=== PATIENT | male | born 2000 | race Caucasian/White ===

== ENCOUNTER 2022-10-17 09:12 | Day surgery (SDC) | payer OTHER ==
[2022-10-13 12:19] VITALS: BMI 21.4
[~2022-10-17 09:12] MED LIST: BUPIVACAINE HCL/EPINEPHRINE/PF 30 ML VIAL IJ ONE; VANCOMYCIN 1,000 MG VIAL (RESTRICTED TO ID ONLY) ONE
[2022-10-17] MEDS ORDERED: PROPOFOL 20 ML ONE ×2 (09:29→10:52)
[2022-10-17] MEDS ORDERED: MIDAZOLAM HCL 2 MG/2 ML SINGLE DOSE VIAL ONE (09:29)
[2022-10-17] MEDS ORDERED: oxyCODONE HCL 5 MG TABLET PO PRN (09:45)
[2022-10-17] MEDS ORDERED: ACETAMINOPHEN 325 MG TABLET (FP) PO PRN (09:45)
[2022-10-17] MEDS ORDERED: ONDANSETRON 4 MG/2 ML VIAL IVPUSH PRN (09:45)
[2022-10-17] MEDS ORDERED: LACTATED RINGERS SOLUTION 1,000 ML IV SCH (09:45)
[2022-10-17] MEDS ORDERED: BUPIVACAINE LIPOSOME/PF (EXPAREL) 266 MG/20 ML VIAL ONE (10:03)
[2022-10-17] MEDS ORDERED: BUPIVACAINE HCL/PF 0.5% (5MG/ML) 10 ML VIAL ONE (10:03)
[2022-10-17] MEDS ORDERED: ACETAMINOPHEN INJECTION 100 ML IVPB ONE (10:04)
[2022-10-17] MEDS ORDERED: KETAMINE HCL 200 MG/20 ML VIAL ONE (10:35)
[2022-10-17] MEDS ORDERED: TRANEXAMIC ACID 1000 MG/10 ML VIAL ONE (11:14)
[2022-10-17 12:53] VITALS: PULSE 56; RESP 18; TEMP 98.3
[2022-10-17 13:46] VITALS: BP 125/74
== END 2022-10-17 12:50 | disposition home or self-care (01) ==
LOC: FASU 09:12
PROVIDERS: ATTEND Orthopaedic Surgery
PROC: 0SBD4ZX Excision of Left Knee Joint, Percutaneous Endoscopic Approach, Diagnostic (ICD-10-PCS; 2022-10-17)
PROC: 0SCD4ZZ Extirpation of Matter from Left Knee Joint, Percutaneous Endoscopic Approach (ICD-10-PCS; principal; 2022-10-17 11:03)
DX: M22.02 Recurrent dislocation of patella, left knee (principal); M24.19 Other articular cartilage disorders, other specified site
CPT/HCPCS: 88304-TC; 88311-TC; 94760

== ENCOUNTER 2022-11-23 08:09 | Day surgery (SDC) | payer OTHER ==
[2022-11-10 14:04] VITALS: BMI 21.4
[2022-11-23] MEDS ORDERED: BUPIVACAINE LIPOSOME/PF (EXPAREL) 266 MG/20 ML VIAL ONE (09:29)
[2022-11-23] MEDS ORDERED: SODIUM CHLORIDE 0.9% P/F 10 ML VIAL IJ ONE (09:29)
[2022-11-23] MEDS ORDERED: MIDAZOLAM HCL 2 MG/2 ML SINGLE DOSE VIAL ONE (09:29)
[2022-11-23] MEDS ORDERED: BUPIVACAINE HCL/PF 0.5% (5MG/ML) 10 ML VIAL ONE (09:29)
[2022-11-23] MEDS ORDERED: KETOROLAC TROMETHAMINE 30 MG/1 ML VIAL ONE (09:40)
[2022-11-23] MEDS ORDERED: ONDANSETRON 4 MG/2 ML VIAL ONE (09:40)
[2022-11-23] MEDS ORDERED: DEXAMETHASONE SOD PHOSPHATE 4 MG/1 ML VIAL ONE (09:40)
[2022-11-23] MEDS ORDERED: ceFAZolin SODIUM 1 GM VIAL ONE (09:40)
[2022-11-23] MEDS ORDERED: PROPOFOL 60 ML ONE (09:41)
[2022-11-23] MEDS ORDERED: SUCCINYLCHOLINE CHLORIDE 200 MG/10 ML SYRINGE ONE (09:41)
[2022-11-23] MEDS ORDERED: TRANEXAMIC ACID 1000 MG/10 ML VIAL ONE ×3 (10:20→11:19)
[2022-11-23] MEDS ORDERED: PROPOFOL 20 ML ONE (13:16)
[2022-11-23] MEDS ORDERED: ACETAMINOPHEN INJECTION 100 ML IVPB ONE (14:14)
[2022-11-23] MEDS ORDERED: ACETAMINOPHEN 1000 MG/100 ML BAG IVPB ONE (14:15)
[2022-11-23] MEDS ORDERED: FENTANYL CITRATE/PF 50 MCG/ML VIAL ONE (14:21)
[2022-11-23] MEDS ORDERED: ONDANSETRON 4 MG/2 ML VIAL IVPUSH PRN (15:00)
[2022-11-23] MEDS ORDERED: oxyCODONE HCL 5 MG TABLET PO PRN ×2 (15:00)
[2022-11-23] MEDS ORDERED: PROMETHAZINE HCL 25 MG/1 ML VIAL IVPB PRN (15:00)
[2022-11-23] MEDS ORDERED: diazePAM 5 MG TABLET PO ONE (15:01)
[2022-11-23] MEDS ORDERED: diazePAM 5 MG TABLET ONE (15:16)
[2022-11-23 17:33] VITALS: TEMP 97.8
[2022-11-23 17:45] VITALS: BP 131/74; PULSE 78; RESP 18
== END 2022-11-23 15:50 | disposition home or self-care (01) ==
LOC: FASU 08:09
PROVIDERS: ATTEND Orthopaedic Surgery
PROC: 0YQG0ZZ Repair Left Knee Region, Open Approach (ICD-10-PCS; 2022-11-23)
PROC: 0YUG07Z Supplement Left Knee Region with Autologous Tissue Substitute, Open Approach (ICD-10-PCS; principal; 2022-11-23 10:44)
DX: S83.015D Lateral dislocation of left patella, subsequent encounter (principal); M24.10 Other articular cartilage disorders, unspecified site; M23.632 Other spontaneous disruption of medial collateral ligament of left knee; X58.XXXD Exposure to other specified factors, subsequent encounter
CPT/HCPCS: 27412; 27427; C1713; 73560-TC-LT-FY; 94760